=== PATIENT | female | born 1975 ===

== ENCOUNTER 2017-11-02 07:15 | Day surgery (SDC) | payer OTHER ==
[2017-11-02] MEDS ORDERED: ACETAMINOPHEN 325 MG TABLET (FP) PO ONE (10:00)
[2017-11-02] MEDS ORDERED: DIPHENHYDRAMINE 50 MG in SODIUM CHLORIDE 100 ML IVPB ONE (10:00)
[2017-11-02] MEDS ORDERED: FERRIC CARBOXYMALTOSE 750 MG in SODIUM CHLORIDE 250 ML IVPB ONE (10:30)
[2017-11-02 18:45] VITALS: BP 111/68; PULSE 60; TEMP 98.3
== END 2017-11-02 17:30 | disposition home or self-care (01) ==
LOC: JONCNONCHE 07:15 → J7W 14:55 → JONCNONCHE 17:30
PROVIDERS: ATTEND Internal Medicine Hematology & Oncology
PROC: 3E033GC Introduction of Other Therapeutic Substance into Peripheral Vein, Percutaneous Approach (ICD-10-PCS; principal; 2017-11-02)
DX: D50.9 Iron deficiency anemia, unspecified (principal)
CPT/HCPCS: 96365

== ENCOUNTER 2017-11-09 07:33 | Day surgery (SDC) | payer OTHER ==
[2017-11-09] MEDS ORDERED: DIPHENHYDRAMINE 50 MG in SODIUM CHLORIDE 100 ML IVPB ONE (10:00)
[2017-11-09] MEDS ORDERED: ACETAMINOPHEN 325 MG TABLET (FP) PO ONE (10:00)
[2017-11-09] MEDS ORDERED: FERRIC CARBOXYMALTOSE 750 MG in SODIUM CHLORIDE 250 ML IVPB ONE (10:30)
[2017-11-09 18:31] VITALS: BP 99/68; PULSE 60; TEMP 98.1
== END 2017-11-09 13:30 | disposition home or self-care (01) ==
LOC: JONCNONCHE 07:33 → J7W 11:52 → JONCNONCHE 13:30
PROVIDERS: ATTEND Internal Medicine Hematology & Oncology
PROC: 3E033GC Introduction of Other Therapeutic Substance into Peripheral Vein, Percutaneous Approach (ICD-10-PCS; principal; 2017-11-09)
DX: D50.9 Iron deficiency anemia, unspecified (principal)
CPT/HCPCS: 96365